=== PATIENT | male | born 1940 | race Caucasian/White ===

== ENCOUNTER 2017-08-10 07:51 | Emergency (ER) | payer MEDICARE ==
[~2017-08-10] VITALS: Ht 172.7 cm; Wt 88.5 kg
[~2017-08-10 07:51] MED LIST: ADULT LOW DOSE81 MG PO; ALLEGRA ALLERG180 MG PO; ALLEGRA60 MG PO; ASPIR 8181 MG PO; BACTRIM DS TAB1 EACH PO; BISACODYL SUPP10 MG RECTAL; CILOXAN5 ML OP; CLEOCIN HCL300 MG PO; FLOMAX; FLOMAX0.4 MG PO; HYDROCODON-ACE1 EAC7 PO; HYDROCODONE-AP1 EAC6 PO; LEVSIN0.125 MG DISSOLVE; MAXITROL EYE DRO5 ML OP; NORCO 5-325 TA1 EACH PO; PERCOCET 5-3251 EACH PO; PHENAZOPYRIDIN200 M2 PO; SENNA PO; TAMSULOSIN HCL0.4 MG PO; VITAMIN B-12500 MCG; VITAMIN B-12500 MCG PO; VITAMIN C120 GM; VITAMIN C60 MG PO; VITAMIN D2000 UNIT PO; VITAMINC500 PO; ZOFRAN ODT4 MG PO
[2017-08-10 08:21] LABS: ABSOLUTE BASOPHILS 0.1 thou/uL (0.0-0.2); ABSOLUTE EOSINOPHILS 0.3 thou/uL (0.0-0.7); ABSOLUTE LYMPHOCYTES 1.4 thou/uL (0.8-5.3); ABSOLUTE MONOCYTES 0.6 thou/uL (0.0-1.2); ABSOLUTE NEUTROPHILS 4.9 thou/uL (1.6-8.1); BASOPHILS 0.8 %; EOSINOPHILS 4.2 %; HEMATOCRIT 45.5 % (42.0-52.0); HEMOGLOBIN 15.5 gm/dL (14.0-18.0); LYMPHOCYTES 19.7 %; MCH 31.7 pg (26.0-34.0); MCHC 34.1 g/dL (28.0-37.0); MCV 92.9 fL (80.0-100.0); MONOCYTES 7.8 %; MPV 7.8 fl. (7.2-11.1); NUCLEATED RBCS 0 /100WBC; PLATELET COUNT* 243 thou/uL (150-400); POLYS 67.5 %; RDW-CV 13.3 % (10.5-14.5); WBC 7.3 thou/uL (4.0-11.0)
[2017-08-10 08:27] LABS: CALCIUM 8.7 mg/dL (8.5-10.1); CREATININE 1.2 mg/dL (0.6-1.3); POTASSIUM 4.1 mmol/L (3.5-5.1)
[2017-08-10 08:32] LABS: ALBUMIN 3.4 g/dL (3.4-5.0); TOTAL BILIRUBIN 0.4 mg/dL (<0.1-1.0); TOTAL PROTEIN 6.7 g/dL (6.4-8.2)
[2017-08-10 08:36] LABS: URINE BILIRUBIN NEGATIVE (Negative); URINE BLOOD 2+ (Negative); URINE CLARITY CLEAR; URINE COLOR YELLOW; URINE GLUCOSE-RANDOM NEGATIVE (Negative); URINE KETONES NEGATIVE (Negative); URINE LEUKOCYTES-REFLEX TRACE (Negative); URINE NITRITE-REFLEX NEGATIVE (Negative); URINE PROTEIN NEGATIVE (Negative); URINE SPECIFIC GRAVITY 1.025 (1.005-1.030); URINE UROBILINOGEN 0.2 E.U./dl (0.2-1.0)
[2017-08-10 09:11] LABS: CASTS None Seen /LPF (None Seen); CRYSTALS None Seen /LPF (None Seen); MUCUS 0-3 Light strn/LPF (None Seen); SQUAMOUS 0-3 Few /LPF (0-3); URINE RBC 3-10 Few /HPF (0-2); URINE WBC-REFLEX 0-5 Rare /HPF (0-5)
[2017-08-10 09:12] LABS: BACTERIA-REFLEX 1-9 Few /HPF (None Seen)
[2017-08-10] MEDS ORDERED: ZOFRAN ODT4 MG PO (10:59)
[2017-08-10] MEDS ORDERED: NORCO 5-325 TA1 EACH PO (10:59)
[2017-08-10] MEDS ORDERED: FLOMAX0.4 MG PO (10:59)
[2017-08-10 11:42] VITALS: BP 144/78
== END 2017-08-10 11:45 | disposition home or self-care (01) ==
LOC: M.ERS 07:51
PROVIDERS: Personal Emergency Response Attendant
DX: N23 Unspecified renal colic (principal); Z87.442 Personal history of urinary calculi; Z85.038 Personal history of other malignant neoplasm of large intestine; Z86.73 Personal history of transient ischemic attack (TIA), and cerebral infarction without residual deficits; Z88.0 Allergy status to penicillin; Z77.22 Contact with and (suspected) exposure to environmental tobacco smoke (acute) (chronic)